=== PATIENT | male | born 1945 | race Caucasian/White ===

== ENCOUNTER 2019-01-07 15:49 | Emergency (ER) | payer SELFPAY ==
[~2019-01-07] VITALS: Ht 175.3 cm; Wt 70.0 kg
[2019-01-07 16:00] VITALS: BP 129/71
== END 2019-01-07 16:30 | disposition left against medical advice (07) ==
LOC: ER 15:49
DX: F10.129 Alcohol abuse with intoxication, unspecified (principal); Y90.9 Presence of alcohol in blood, level not specified; K70.9 Alcoholic liver disease, unspecified; Z91.81 History of falling
CPT/HCPCS: 99283